=== PATIENT | male | born 1940 | race Caucasian/White ===

== ENCOUNTER 2016-11-15 20:48 | Emergency (ER) | payer BC, MEDICARE ==
[2016-11-15 21:11] VITALS: BP 163/73
--- NOTE | 2016-11-15 22:10 | UC ---
Lower Extremity/Ankle HPI - HPI Summary HPI Summary: FOUR DAYS OF INTERMITTENT LEFT GREAT TOE REDNESS, TENDERNESS, SWELLING. NO TRAUMA. NO FEVER. NO INJURY. COMES AND GOES. NO HISTORY OF GOUT. - History of Current Complaint Chief Complaint: UCLowerExtremity Stated Complaint: SORE TOE LEFT FOOT Time Seen by Provider: 11/15/16 21:48 Hx Obtained From: Patient Onset/Duration: Gradual Onset, Lasting Days, Still Present Severity Initially: Mild Severity Currently: Mild Aggravating Factor(s): Standing, Ambulation, Other - TOUCH Alleviating Factor(s): Rest Able to Bear Weight: Yes - Risk Factors Gout Risk Factors: Age Over 40, Male, Renal Disease, Obesity DVT Risk Factors: Negative Septic Arthritis Risk Factor: Negative - Allergies/Home Medications Allergies/Adverse Reactions: Allergies Allergy/AdvReac Type Severity Reaction Status Date / Time No Known Allergies Allergy Verified 11/15/16 20:59 Home Medications: Home Medications Cetirizine* [ZyrTEC 10 MG TAB*] 10 mg PO DAILY 11/15/16 [History Confirmed 11/15] Esomeprazole(NF) [NexIUM(NF)] 40 mg PO DAILY 11/15/16 [History Confirmed ] Lisinopril [Lisinopril 40 MG-] 40 mg PO DAILY 11/15/16 [History Confirmed ] Minocycline HCl [Minocin] 100 mg PO DAILY 11/15/16 [History Confirmed 11/15/16] PARoxetine HCL TAB* [Paxil TAB*] 20 mg PO DAILY 11/15/16 [History Confirmed ] amLODIPine TAB* [Norvasc 5 mg TAB*] 2.5 mg PO DAILY 11/15/16 [History Confirmed 11/15/16] PMH/Surg Hx/FS Hx/Imm Hx Previously Healthy: Yes Cardiovascular History Of: Reports: Hypertension - Surgical History Surgery Procedure, Year, and Place: NEPHRECTOMY FOR A TUMOR. COLECTOMY FOR CA. PROSTATECTOMY - Family History Known Family History: Negative: Other - NO FAMILY HX OF GOUT - Social History Occupation: Retired Lives: With Family Alcohol Use: Weekly Substance Use Type: None Smoking Status (MU): Former Smoker When Did the Patient Quit Smoking/Using Tobacco: 30 YEARS AGO Review of Systems Constitutional: Negative Skin: Other - REDNESS TENDERNESS Eyes: Negative ENT: Negative Respiratory: Negative Cardiovascular: Negative Gastrointestinal: Negative Genitourinary: Negative Motor: Negative Neurovascular: Negative Musculoskeletal: Edema - LEFT GREAT TOE Neurological: Negative Psychological: Negative All Other Systems Reviewed And Are Negative: Yes Physical Exam Triage Information Reviewed: Yes Appearance: Well-Appearing, No Pain Distress, Well-Nourished Vital Signs: Initial Vital Signs Temp 98.9 F 11/15/16 21:02 Pulse 73 11/15/16 21:02 Resp 16 11/15/16 21:02 BP 163/73 11/15/16 21:02 Pulse Ox 100 11/15/16 21:02 Vital Signs Reviewed: Yes Eye Exam: Normal ENT Exam: Normal ENT: Positive: Normal ENT inspection, Hearing grossly normal, Pharynx normal, TMs normal Dental Exam: Normal Neck exam: Normal Neck: Positive: Supple, Nontender, No Lymphadenopathy Respiratory Exam: Normal Respiratory: Positive: Chest non-tender, Lungs clear, Normal breath sounds, No respiratory distress Cardiovascular Exam: Normal Cardiovascular: Positive: RRR, No Murmur, Pulses Normal Abdominal Exam: Normal Abdomen Description: Positive: Nontender, No Organomegaly Musculoskeletal: Positive: Strength Intact, ROM Intact, Edema @ - LEFT GREAT TOE , Other: - ERRETHEMA LEFT GREAT TOE Neurological Exam: Normal Psychological Exam: Normal Skin Exam: Normal Lower Extremity Course/Dx - Differential Dx/Diagnosis Differential Diagnosis/HQI/PQRI: Arthritis, Cellulitis, Fracture (Closed), Gout , Sprain, Strain Provider Diagnoses: POSSIBLE GOUT Discharge - Discharge Plan Condition: Stable Disposition: HOME Patient Education Materials: Low Purine Diet (ED), Gout (ED) Referrals: Rickey Redman DO [Primary Care Provider] -
[2016-11-16 11:35] LABS: Hematocrit 44 % (42-52); Hemoglobin 14.3 g/dl (14.0-18.0); Mean Corpuscular HGB Conc 33 g/dl (31-36); Mean Corpuscular Hemoglobin 29 pg (27-31); Mean Corpuscular Volume 88 fL (80-94); Mean Platelet Volume 9 um3 (7.4-10.4); Red Blood Count 4.98 10^6/ul (4.0-5.4); Red Cell Distribution Width 15 % (10.5-15); White Blood Count 6.9 10^3/ul (3.5-10.8)
[2016-11-16 11:39] LABS: Add Diff/Slide Review? Slide Review Added; Comments Flag Yes
== END 2016-11-15 22:25 | disposition home or self-care (01) ==
LOC: UCCORT 20:48
DX: M79.675 Pain in left toe(s) (principal); I10 Essential (primary) hypertension; Z87.891 Personal history of nicotine dependence
CPT/HCPCS: 36415; 84550; 85025; 99201; G0463

== ENCOUNTER 2021-02-04 16:47 | Inpatient (IN) ==
[2021-02-04 17:07] LABS: Hematocrit 31 % (42-52); Mean Corpuscular HGB Conc 32 g/dL (31-36); Mean Corpuscular Hemoglobin 29 pg (27-31); Mean Corpuscular Volume 90 fL (80-94); Red Blood Count 3.49 10^6 /uL (4.18-5.48); White Blood Count 7.9 10^3/uL (3.5-10.8)
[2021-02-04] MEDS ORDERED: Iodixanol (CONTRAST) 320 MG/ML 100 ML SDV IV ONE (17:09)
[2021-02-04 17:16] LABS: Activated Partial Thrombo Time 29.9 seconds (26.0-38.0); INR 1.21 (0.86-1.15)
[2021-02-04 17:22] LABS: Albumin 2.6 g/dL (3.2-5.2); Albumin/Globulin Ratio 0.9 (1-3); C Reactive Protein 96.66 mg/L (<8.01); Calcium 7.2 mg/dL (8.6-10.3); EGFR African American 44.8 (>60); EGFR Non-African American 37.1 (>60); Globulin 2.9 g/dL (2-4); Potassium 5.5 mmol/L (3.5-5.0); Total Bilirubin 0.7 mg/dL (0.2-1.0); Total Protein 5.5 g/dL (6.4-8.9)
[2021-02-04 17:23] LABS: Troponin I 0.02 ng/mL (<0.03)
[2021-02-04] MEDS ORDERED: Lactated Ringers 500 ml BAG 500 ML IV ONE (17:39)
[2021-02-04 18:04] LABS: ABS Basophils 0.1 10^3/ul (0-0.2); ABS Eosinophils 0.1 10^3/ul (0-0.6); ABS Lymphocytes 2.1 10^3/ul (1.0-4.8); ABS Monocytes 0.2 10^3/ul (0-0.8); ABS Neutrophils 5.4 10^3/ul (1.5-7.7); ABS Nucleated RBC 0.2 10^3/ul; Eosinophil % 1.3 %; Lymphocyte % 26.8 %; Mean Platelet Volume 9.8 fL (7.4-10.4); Platelet Count 28 10^3/uL (150-450); Red Cell Distribution Width 21 % (10-15)
[2021-02-04 19:10] LABS: Phosphorus 4.7 mg/dL (2.5-5.0)
[2021-02-04 20:49] LABS: Uric Acid 4.6 mg/dL (4.4-7.6)
[2021-02-04] MEDS ORDERED: NS 0.9% 1000 ml BAG 1,000 ML IV SCH ×2 (21:00→22:15)
[2021-02-04] MEDS ORDERED: Dextrose 50% Syringe 50 ml 25 GM/50 ML SYRINGE IV PUSH PRN (21:01)
[2021-02-04] MEDS ORDERED: Sodium Polystyrene ORAL.SUSP 15 GM/60 ML BTL PO ONE (21:01)
[2021-02-04] MEDS ORDERED: Calcium Gluconate 2 GM in NS 0.9% 100 ml BAG 100 ML IV ONE (21:01)
[2021-02-04] MEDS ORDERED: Ondansetron ODT 4 mg TAB 4 MG TAB SL PRN (22:29)
[2021-02-04] MEDS: CALCIUM GLUCONATE 1GM/50ML NS BAG IV SCH (22:37)
[2021-02-05] MEDS: CALCIUM GLUCONATE 1GM/50ML NS BAG IV SCH (00:46)
[2021-02-05 01:29] LABS: Calcium 6.8 mg/dL (8.6-10.3); EGFR African American 47.9 (>60); EGFR Non-African American 39.6 (>60); Magnesium 1.8 mg/dL (1.9-2.7); Phosphorus 4.4 mg/dL (2.5-5.0); Potassium 4.7 mmol/L (3.5-5.0); Uric Acid 4.7 mg/dL (4.4-7.6)
[2021-02-05] MEDS ORDERED: Magnesium Sulfate IV 1GM/100ML 1 GM/100 ML BAG IV ONE (01:38)
[2021-02-05] MEDS ORDERED: Calcium Gluconate 2 GM in NS 0.9% 100 ml BAG 100 ML IV ONE (02:00)
[2021-02-05 06:04] LABS: Albumin 2.2 g/dL (3.2-5.2); Calcium 7.2 mg/dL (8.6-10.3); Direct Bilirubin 0.2 mg/dL (0.03-0.18); Indirect Bilirubin 0.4 mg/dL (0.3-1.0); Potassium 4.7 mmol/L (3.5-5.0); Total Bilirubin 0.6 mg/dL (0.2-1.0)
[2021-02-05 06:09] LABS: INR 1.43 (0.86-1.15)
[2021-02-05 06:10] LABS: Albumin/Globulin Ratio 0.8 (1-3); EGFR Non-African American 38.8 (>60); Globulin 2.8 g/dL (2-4)
[2021-02-05] MEDS: NS 0.9% 1000 ml BAG 1,000 ML IV SCH ×2 (06:12→17:02)
[2021-02-05 06:27] LABS: Hematocrit 26 % (42-52); Hemoglobin 8.4 g/dL (14.0-18.0); Mean Corpuscular HGB Conc 33 g/dL (31-36); Mean Corpuscular Hemoglobin 29 pg (27-31); Mean Corpuscular Volume 88 fL (80-94); Mean Platelet Volume 9.1 fL (7.4-10.4); Platelet Count 26 10^3/uL (150-450); Red Blood Count 2.93 10^6 /uL (4.18-5.48); Red Cell Distribution Width 20 % (10-15); White Blood Count 14.5 10^3/uL (3.5-10.8)
[2021-02-05 08:22] LABS: ABS Basophils 0.1 10^3/ul (0-0.2); ABS Lymphocytes 6.7 10^3/ul (1.0-4.8); ABS Monocytes 1.6 10^3/ul (0-0.8); ABS Neutrophils 6.1 10^3/ul (1.5-7.7); Lymphocyte % 46.1 %
[2021-02-05 08:42] LABS: Magnesium 2.1 mg/dL (1.9-2.7)
[2021-02-05 08:48] LABS: Phosphorus 4.5 mg/dL (2.5-5.0); Uric Acid 4.6 mg/dL (4.4-7.6)
[2021-02-05] MEDS ORDERED: Enoxaparin 40 MG/0.4 ML SYR SUBCUT SCH (09:00)
[2021-02-05 09:23] LABS: Urine Appearance Cloudy; Urine Bilirubin Negative (Negative); Urine Blood 1+ (Negative); Urine Color Yellow; Urine Glucose Negative (Negative); Urine Ketones Negative (Negative); Urine Nitrite Negative (Negative); Urine Protein 1+(30 mg/dL) (Negative); Urine Specific Gravity 1.051 (1.002-1.030); Urine Urobilinogen Negative (Negative)
[2021-02-05 09:27] LABS: Urine Bacteria Absent (Absent); Urine Red Blood Cell 2+(6-10/hpf) (Absent); Urine Squamous Epithelial Cell Present (Absent); Urine White Blood Cell Trace(0-5/hpf) (Absent)
[2021-02-05] MEDS: NS 0.9% IVPB SCH (11:51)
[2021-02-05] MEDS: BENDAMUSTINE HCL IVPB SCH (11:51)
[2021-02-05] MEDS ORDERED: Ondansetron 4 mg VIAL 2 MG/ML 2 ml VIAL IV ONE (12:00)
[2021-02-05] MEDS ORDERED: riTUXimab-ABBS 500 MG, riTUXimab-ABBS 200 MG in NS 0.9% 500 ml BAG 280 ML IVPB ONE (12:00)
[2021-02-05] MEDS ORDERED: Famotidine IV 10 MG/ML 2 ml VIAL (20 mg) IV ONE (12:00)
[2021-02-05] MEDS ORDERED: methylPREDNISolone 125 mg 2 ML VIAL IV ONE (12:00)
[2021-02-05] MEDS ORDERED: diPHENhydraMINE IV 50 MG/ML 1 ml VIAL (BENADRYL) IV ONE (12:00)
[2021-02-05 12:22] LABS: EGFR Non-African American 38.8 (>60); Phosphorus 4.6 mg/dL (2.5-5.0); Potassium 4.7 mmol/L (3.5-5.0); Uric Acid 4.7 mg/dL (4.4-7.6)
[2021-02-05 12:47] LABS: RBC Morphology Normal (Normal)
[2021-02-05 12:49] LABS: ABS Basophils 0.1 10^3/ul (0-0.2); ABS Lymphocytes 8.7 10^3/ul (1.0-4.8); ABS Monocytes 2.1 10^3/ul (0-0.8); ABS Neutrophils 7.2 10^3/ul (1.5-7.7); Hematocrit 29 % (42-52); Hemoglobin 8.8 g/dL (14.0-18.0); Mean Corpuscular HGB Conc 31 g/dL (31-36); Mean Corpuscular Hemoglobin 28 pg (27-31); Mean Corpuscular Volume 89 fL (80-94); Mean Platelet Volume 9.2 fL (7.4-10.4); Platelet Count 30 10^3/uL (150-450); Red Blood Count 3.21 10^6 /uL (4.18-5.48); Red Cell Distribution Width 22 % (10-15); White Blood Count 18.1 10^3/uL (3.5-10.8)
[2021-02-06] MEDS: NS 0.9% 1000 ml BAG 1,000 ML IV SCH ×2 (04:00→14:35)
[2021-02-06 06:01] LABS: Hematocrit 25 % (42-52); Hemoglobin 7.7 g/dL (14.0-18.0); Mean Corpuscular HGB Conc 31 g/dL (31-36); Mean Corpuscular Hemoglobin 28 pg (27-31); Mean Corpuscular Volume 89 fL (80-94); Mean Platelet Volume 8.8 fL (7.4-10.4); Platelet Count 19 10^3/uL (150-450); Red Blood Count 2.76 10^6 /uL (4.18-5.48); Red Cell Distribution Width 22 % (10-15); White Blood Count 17.2 10^3/uL (3.5-10.8)
[2021-02-06 06:13] LABS: Phosphorus 5.9 mg/dL (2.5-5.0); Uric Acid 4.9 mg/dL (4.4-7.6)
[2021-02-06 06:22] LABS: Anisocytosis 1+
[2021-02-06 06:23] LABS: Polychromasia 1+; RBC Morphology Normal (Normal); Smudge Cells Present
[2021-02-06 06:24] LABS: ABS Basophils 0.2 10^3/ul (0-0.2); ABS Lymphocytes 6.9 10^3/ul (1.0-4.8); ABS Monocytes 1.4 10^3/ul (0-0.8); ABS Neutrophils 8.7 10^3/ul (1.5-7.7); Eosinophil % 0.1 %; Lymphocyte % 39.9 %; Nucleated Red Blood Cells % 0.1
[2021-02-06] MEDS ORDERED: Ondansetron 4 mg VIAL 2 MG/ML 2 ml VIAL IV ONE (09:00)
[2021-02-06 11:12] LABS: EGFR African American 37.9 (>60); EGFR Non-African American 31.3 (>60); Potassium 4.8 mmol/L (3.5-5.0)
[2021-02-06 11:33] LABS: Calcium 6.4 mg/dL (8.6-10.3)
[2021-02-06] MEDS: BENDAMUSTINE HCL IVPB SCH (11:42)
[2021-02-06] MEDS: NS 0.9% IVPB SCH (11:42)
[2021-02-06] MEDS: Calcium Carb (TUMS) 500 mg CHEW TAB PO SCH ×2 (13:39→21:28)
[2021-02-06 19:27] LABS: EGFR African American 37.5 (>60); Phosphorus 5.2 mg/dL (2.5-5.0); Potassium 4.9 mmol/L (3.5-5.0)
[2021-02-06 19:45] LABS: Calcium 6.2 mg/dL (8.6-10.3)
[2021-02-06] MEDS ORDERED: Calcium Gluconate 2 GM in NS 0.9% 100 ml BAG 100 ML IV ONE (19:56)
[2021-02-07] MEDS: NS 0.9% 1000 ml BAG 1,000 ML IV SCH ×3 (00:58→17:05)
[2021-02-07] MEDS: Calcium Carb (TUMS) 500 mg CHEW TAB PO SCH ×3 (09:54→22:11)
[2021-02-07 12:00] LABS: Hematocrit 25 % (42-52); Hemoglobin 7.9 g/dL (14.0-18.0); Mean Corpuscular HGB Conc 32 g/dL (31-36); Mean Corpuscular Hemoglobin 28 pg (27-31); Mean Corpuscular Volume 88 fL (80-94); Mean Platelet Volume 9.2 fL (7.4-10.4); Platelet Count 20 10^3/uL (150-450); Red Cell Distribution Width 21 % (10-15); White Blood Count 20.8 10^3/uL (3.5-10.8)
[2021-02-07 12:11] LABS: Calcium 6.5 mg/dL (8.6-10.3); EGFR African American 43.7 (>60); EGFR Non-African American 36.1 (>60); Phosphorus 5.1 mg/dL (2.5-5.0); Potassium 4.9 mmol/L (3.5-5.0); Uric Acid 4.9 mg/dL (4.4-7.6)
[2021-02-07 12:51] LABS: Anisocytosis 2+; Hypochromasia 2+
[2021-02-07 12:59] LABS: Acanthocytes 3+
[2021-02-07 13:00] LABS: Smudge Cells Present
[2021-02-07 13:01] LABS: ABS Basophils 0.4 10^3/ul (0-0.2); ABS Lymphocytes 12.9 10^3/ul (1.0-4.8); ABS Monocytes 2.1 10^3/ul (0-0.8); ABS Neutrophils 5.3 10^3/ul (1.5-7.7); Lymphocyte % 62.1 %
[2021-02-08] MEDS: NS 0.9% 1000 ml BAG 1,000 ML IV SCH ×3 (03:48→21:01)
[2021-02-08 06:32] LABS: Hematocrit 25 % (42-52); Mean Corpuscular HGB Conc 32 g/dL (31-36); Mean Corpuscular Hemoglobin 28 pg (27-31); Mean Corpuscular Volume 88 fL (80-94); Mean Platelet Volume 9.4 fL (7.4-10.4); Platelet Count 25 10^3/uL (150-450); Red Blood Count 2.87 10^6 /uL (4.18-5.48); Red Cell Distribution Width 22 % (10-15); White Blood Count 31.7 10^3/uL (3.5-10.8)
[2021-02-08 06:33] LABS: Calcium 6.7 mg/dL (8.6-10.3); EGFR African American 52.6 (>60); EGFR Non-African American 43.5 (>60); Phosphorus 3.7 mg/dL (2.5-5.0)
[2021-02-08 06:38] LABS: Potassium 5.1 mmol/L (3.5-5.0)
[2021-02-08 06:59] LABS: Anisocytosis 2+
[2021-02-08 07:00] LABS: Burr Cells 1+; Polychromasia 1+
[2021-02-08 07:02] LABS: ABS Basophils 0.2 10^3/ul (0-0.2); ABS Lymphocytes 14.6 10^3/ul (1.0-4.8); ABS Monocytes 1.6 10^3/ul (0-0.8); ABS Neutrophils 15.2 10^3/ul (1.5-7.7); Lymphocyte % 46.2 %
[2021-02-08] MEDS: Calcium Carb (TUMS) 500 mg CHEW TAB PO SCH ×3 (10:35→21:01)
[2021-02-09] MEDS: NS 0.9% 1000 ml BAG 1,000 ML IV SCH (04:25)
[2021-02-09] MEDS: Calcium Carb (TUMS) 500 mg CHEW TAB PO SCH ×2 (09:00→13:51)
[2021-02-09 09:29] LABS: Hematocrit 31 % (42-52); Hemoglobin 8.7 g/dL (14.0-18.0); Mean Corpuscular HGB Conc 28 g/dL (31-36); Mean Corpuscular Hemoglobin 28 pg (27-31); Mean Corpuscular Volume 98 fL (80-94); Mean Platelet Volume 9.2 fL (7.4-10.4); Platelet Count 29 10^3/uL (150-450); Red Blood Count 3.15 10^6 /uL (4.18-5.48); Red Cell Distribution Width 22 % (10-15); White Blood Count 26.9 10^3/uL (3.5-10.8)
[2021-02-09 09:43] LABS: Calcium 6.7 mg/dL (8.6-10.3); EGFR African American 65.6 (>60); EGFR Non-African American 54.2 (>60); Phosphorus 3.2 mg/dL (2.5-5.0); Uric Acid 4.5 mg/dL (4.4-7.6)
[2021-02-09 10:32] LABS: Anisocytosis 1+
[2021-02-09 10:33] LABS: ABS Basophils 0.1 10^3/ul (0-0.2); ABS Eosinophils 0.1 10^3/ul (0-0.6); ABS Lymphocytes 12.5 10^3/ul (1.0-4.8); ABS Monocytes 0.6 10^3/ul (0-0.8); ABS Neutrophils 13.6 10^3/ul (1.5-7.7); Eosinophil % 0.4 %; Hypochromasia 3+; Lymphocyte % 46.6 %; Polychromasia 1+
[2021-02-09 15:41] VITALS: BP 99/54
[2021-02-10] MEDS ORDERED: ENTECAVIR 0.5 MG PO SCH (09:00)
== END 2021-02-09 16:45 | disposition home health service (06) | DRG 840 ==
LOC: ED 16:47 → MEDTELE 16:47
PROVIDERS: ADMIT Internal Medicine; ATTEND Internal Medicine Medical Oncology

== ENCOUNTER 2021-02-18 12:11 | Inpatient (IN) ==
[2021-02-18] MEDS ORDERED: NS 0.9% 1000 ml BAG 1,000 ML IV ONE (13:03)
[2021-02-18] MEDS ORDERED: Vancomycin 1,500 MG in NS 0.9% 250 ml 250 ML IVPB ONE (13:03)
[2021-02-18 14:30] LABS: Eosinophil % 0.2 %; Hematocrit 27 % (42-52); Hemoglobin 8.8 g/dL (14.0-18.0); Lymphocyte % 97.1 %; Mean Corpuscular HGB Conc 33 g/dL (31-36); Mean Corpuscular Hemoglobin 30 pg (27-31); Mean Corpuscular Volume 93 fL (80-94); Nucleated Red Blood Cells % 0.1; Platelet Count 64 10^3/uL (150-450); Red Blood Count 2.92 10^6 /uL (4.18-5.48); Red Cell Distribution Width 25 % (10-15); White Blood Count 3.1 10^3/uL (3.5-10.8)
[2021-02-18 14:39] LABS: INR 1.29 (0.86-1.15)
[2021-02-18 14:44] LABS: ALT 11 U/L (7-52); Albumin 2.2 g/dL (3.2-5.2); Albumin/Globulin Ratio 0.9 (1-3); Alkaline Phosphatase 92 U/L (35-149); Blood Urea Nitrogen 21 mg/dL (6-24); C Reactive Protein 92.07 mg/L (<8.01); CO2 Carbon Dioxide 21 mmol/L (22-32); Calcium 6.8 mg/dL (8.6-10.3); Chloride 106 mmol/L (101-111); EGFR African American 51.8 (>60); EGFR Non-African American 42.8 (>60); Globulin 2.4 g/dL (2-4); Glucose 86 mg/dL (70-100); Sodium 133 mmol/L (135-145); Total Protein 4.6 g/dL (6.4-8.9)
[2021-02-18 14:45] LABS: Troponin I 0.01 ng/mL (<0.03)
[2021-02-18 14:55] LABS: Anion Gap 6 mmol/L (2-11)
[2021-02-18] MEDS ORDERED: Piperacillin/Tazobac ADVAN 3.375 GM in NS 0.9% 100 ml BAG 100 ML IV ONE ×2 (15:35→17:53)
[2021-02-18 15:43] LABS: ABS Neutrophils 0.1 10^3/ul (1.5-7.7)
[2021-02-18 16:40] LABS: Potassium Redraw 3.5 mmol/L (3.5-5.0)
[2021-02-18] MEDS ORDERED: Zosyn per Pharmacy NOTE FOLLOW UP SCH (18:00)
[2021-02-18] MEDS: ZOSYN 3.375 GM Q8H per EXTENDED INFUSION IV SCH (22:28)
[2021-02-19] MEDS: ZOSYN 3.375 GM Q8H per EXTENDED INFUSION IV SCH ×2 (04:51→13:06)
[2021-02-19 05:14] LABS: Hematocrit 25 % (42-52); Hemoglobin 8.2 g/dL (14.0-18.0); Mean Corpuscular HGB Conc 33 g/dL (31-36); Mean Corpuscular Hemoglobin 30 pg (27-31); Mean Corpuscular Volume 92 fL (80-94); Mean Platelet Volume 8.3 fL (7.4-10.4); Platelet Count 36 10^3/uL (150-450); Red Blood Count 2.72 10^6 /uL (4.18-5.48); Red Cell Distribution Width 26 % (10-15); White Blood Count 3.3 10^3/uL (3.5-10.8)
[2021-02-19 05:27] LABS: Albumin/Globulin Ratio 0.9 (1-3); EGFR African American 55.5 (>60); EGFR Non-African American 45.8 (>60); Globulin 2.2 g/dL (2-4); Potassium 3.5 mmol/L (3.5-5.0); Total Bilirubin 1.1 mg/dL (0.2-1.0); Total Protein 4.2 g/dL (6.4-8.9)
[2021-02-19 05:31] LABS: Calcium 6.4 mg/dL (8.6-10.3)
[2021-02-19 05:44] LABS: ABS Lymphocytes 3.2 10^3/ul (1.0-4.8); Eosinophil % 0.5 %; Lymphocyte % 98.4 %; Nucleated Red Blood Cells % 0.2
[2021-02-19] MEDS: ENTECAVIR 0.5 MG PO SCH (09:26)
[2021-02-19 09:35] LABS: Calcium 6.5 mg/dL (8.6-10.3); EGFR African American 52.6 (>60); EGFR Non-African American 43.5 (>60); Potassium 3.5 mmol/L (3.5-5.0)
[2021-02-19] MEDS: Nystatin TOP POWDER 15 GM BTL TOPICAL SCH (21:59)
[2021-02-19] MEDS: Meropenem 1 GM PREMIX 1 GM/50 ML BAG IV SCH (22:00)
[2021-02-20 05:41] LABS: Hematocrit 25 % (42-52); Hemoglobin 8.1 g/dL (14.0-18.0); Mean Corpuscular HGB Conc 33 g/dL (31-36); Mean Corpuscular Hemoglobin 31 pg (27-31); Mean Corpuscular Volume 93 fL (80-94); Mean Platelet Volume 8.6 fL (7.4-10.4); Platelet Count 29 10^3/uL (150-450); Red Blood Count 2.65 10^6 /uL (4.18-5.48); Red Cell Distribution Width 27 % (10-15); White Blood Count 2.8 10^3/uL (3.5-10.8)
[2021-02-20 05:45] LABS: ABS Neutrophils 0.3 10^3/ul (1.5-7.7)
[2021-02-20 05:59] LABS: Calcium 6.6 mg/dL (8.6-10.3); EGFR African American 56.8 (>60); EGFR Non-African American 46.9 (>60); Potassium 3.4 mmol/L (3.5-5.0)
[2021-02-20 06:32] LABS: ABS Lymphocytes 2.5 10^3/ul (1.0-4.8); Eosinophil % 0.9 %; Nucleated Red Blood Cells % 0.1
[2021-02-20] MEDS: Meropenem 1 GM PREMIX 1 GM/50 ML BAG IV SCH ×2 (09:04→21:44)
[2021-02-20] MEDS: ENTECAVIR 0.5 MG PO SCH (09:05)
[2021-02-20] MEDS: Nystatin TOP POWDER 15 GM BTL TOPICAL SCH ×2 (09:06→21:46)
[2021-02-20 09:24] LABS: Hematocrit 26 % (42-52); Hemoglobin 8.4 g/dL (14.0-18.0); Mean Corpuscular HGB Conc 32 g/dL (31-36); Mean Corpuscular Hemoglobin 30 pg (27-31); Mean Corpuscular Volume 94 fL (80-94); Mean Platelet Volume 8.9 fL (7.4-10.4); Platelet Count 30 10^3/uL (150-450); Red Cell Distribution Width 26 % (10-15); White Blood Count 2.9 10^3/uL (3.5-10.8)
[2021-02-20 09:33] LABS: Potassium Redraw 3.5 mmol/L (3.5-5.0)
[2021-02-20 09:48] LABS: Total Iron Binding Capacity 179 mcg/dL (250-450); Transferrin 128 mg/dL (203-362)
[2021-02-20 09:50] LABS: % Iron Saturation 11 % (15-55); Iron < 20 ug/dL (50-212); Unsaturated Iron Binding < 164 ug/dL
[2021-02-20 09:55] LABS: Potassium 3.5 mmol/L (3.5-5.0)
[2021-02-20 10:08] LABS: Calcium 6.6 mg/dL (8.6-10.3); EGFR African American 55.9 (>60); EGFR Non-African American 46.2 (>60); Ferritin 261.3 ng/mL (24-336)
[2021-02-20 10:15] LABS: Anisocytosis 1+
[2021-02-21 05:48] LABS: Hematocrit 25 % (42-52); Hemoglobin 7.9 g/dL (14.0-18.0); Mean Corpuscular HGB Conc 32 g/dL (31-36); Mean Corpuscular Hemoglobin 30 pg (27-31); Mean Corpuscular Volume 94 fL (80-94); Mean Platelet Volume 8.4 fL (7.4-10.4); Platelet Count 29 10^3/uL (150-450); Red Blood Count 2.61 10^6 /uL (4.18-5.48); Red Cell Distribution Width 27 % (10-15); White Blood Count 4.7 10^3/uL (3.5-10.8)
[2021-02-21 06:06] LABS: Albumin/Globulin Ratio 0.9 (1-3); EGFR African American 58.2 (>60); EGFR Non-African American 48.1 (>60); Globulin 2.2 g/dL (2-4); Magnesium 1.4 mg/dL (1.9-2.7); Potassium 3.5 mmol/L (3.5-5.0); Total Bilirubin 0.8 mg/dL (0.2-1.0); Total Protein 4.2 g/dL (6.4-8.9)
[2021-02-21 06:27] LABS: ABS Lymphocytes 4.5 10^3/ul (1.0-4.8); ABS Monocytes 0.1 10^3/ul (0-0.8); ABS Neutrophils 0.1 10^3/ul (1.5-7.7); Calcium 6.4 mg/dL (8.6-10.3); Eosinophil % 0.6 %; Lymphocyte % 96.1 %; Nucleated Red Blood Cells % 0.1
[2021-02-21] MEDS ORDERED: Magnesium Sulf 4 GM/100 ML IV 4,000 MG/100 ML BAG IVPB ONE (08:30)
[2021-02-21] MEDS: Meropenem 1 GM PREMIX 1 GM/50 ML BAG IV SCH ×2 (09:15→20:47)
[2021-02-21] MEDS: Nystatin TOP POWDER 15 GM BTL TOPICAL SCH ×2 (09:16→20:47)
[2021-02-21] MEDS: Calcium Carb (TUMS) 500 mg CHEW TAB PO SCH ×2 (09:16→20:47)
[2021-02-21] MEDS: ENTECAVIR 0.5 MG PO SCH (09:18)
[2021-02-21 09:42] LABS: ABS Lymphocytes 4.7 10^3/ul (1.0-4.8); ABS Neutrophils 0.1 10^3/ul (1.5-7.7); Eosinophil % 0.4 %; Hematocrit 25 % (42-52); Hemoglobin 8.1 g/dL (14.0-18.0); Lymphocyte % 96.2 %; Mean Corpuscular HGB Conc 32 g/dL (31-36); Mean Corpuscular Hemoglobin 30 pg (27-31); Mean Corpuscular Volume 94 fL (80-94); Mean Platelet Volume 8.3 fL (7.4-10.4); Nucleated Red Blood Cells % 0.2; Platelet Count 27 10^3/uL (150-450); Red Cell Distribution Width 26 % (10-15); White Blood Count 4.8 10^3/uL (3.5-10.8)
[2021-02-21 09:53] LABS: Albumin/Globulin Ratio 0.9 (1-3); Calcium 6.6 mg/dL (8.6-10.3); EGFR African American 63.9 (>60); EGFR Non-African American 52.8 (>60); Globulin 2.3 g/dL (2-4); Potassium 3.5 mmol/L (3.5-5.0); Total Bilirubin 0.8 mg/dL (0.2-1.0); Total Protein 4.3 g/dL (6.4-8.9)
[2021-02-22 05:47] LABS: Magnesium 2.1 mg/dL (1.9-2.7)
[2021-02-22] MEDS: Meropenem 1 GM PREMIX 1 GM/50 ML BAG IV SCH ×2 (07:55→22:09)
[2021-02-22] MEDS: Calcium Carb (TUMS) 500 mg CHEW TAB PO SCH ×2 (07:56→22:07)
[2021-02-22 08:13] LABS: ABS Lymphocytes 4.3 10^3/ul (1.0-4.8); ABS Neutrophils 0.5 10^3/ul (1.5-7.7); Hematocrit 25 % (42-52); Lymphocyte % 88.5 %; Mean Corpuscular HGB Conc 32 g/dL (31-36); Mean Corpuscular Hemoglobin 31 pg (27-31); Mean Corpuscular Volume 95 fL (80-94); Mean Platelet Volume 8.6 fL (7.4-10.4); Platelet Count 22 10^3/uL (150-450); Red Blood Count 2.61 10^6 /uL (4.18-5.48); Red Cell Distribution Width 26 % (10-15); White Blood Count 4.9 10^3/uL (3.5-10.8)
[2021-02-22 08:19] LABS: Potassium 3.5 mmol/L (3.5-5.0)
[2021-02-22 08:20] LABS: Albumin 1.9 g/dL (3.2-5.2); Albumin/Globulin Ratio 0.8 (1-3); Calcium 6.7 mg/dL (8.6-10.3); EGFR African American 67.4 (>60); EGFR Non-African American 55.7 (>60); Globulin 2.3 g/dL (2-4); Total Bilirubin 0.7 mg/dL (0.2-1.0); Total Protein 4.2 g/dL (6.4-8.9)
[2021-02-22 08:45] LABS: Acanthocytes 1+; Anisocytosis 2+
[2021-02-22 08:46] LABS: Hypochromasia 1+
[2021-02-22] MEDS: Nystatin TOP POWDER 15 GM BTL TOPICAL SCH ×2 (10:15→22:42)
[2021-02-22] MEDS: ENTECAVIR 0.5 MG PO SCH (10:15)
[2021-02-23 05:45] LABS: Hematocrit 25 % (42-52); Hemoglobin 8.3 g/dL (14.0-18.0); Mean Corpuscular HGB Conc 33 g/dL (31-36); Mean Corpuscular Hemoglobin 31 pg (27-31); Mean Corpuscular Volume 94 fL (80-94); Mean Platelet Volume 8.5 fL (7.4-10.4); Platelet Count 22 10^3/uL (150-450); Red Cell Distribution Width 26 % (10-15); White Blood Count 5.9 10^3/uL (3.5-10.8)
[2021-02-23 05:56] LABS: Albumin 1.9 g/dL (3.2-5.2); Albumin/Globulin Ratio 0.9 (1-3); Calcium 6.8 mg/dL (8.6-10.3); EGFR African American 73.5 (>60); EGFR Non-African American 60.7 (>60); Globulin 2.2 g/dL (2-4); Potassium 3.5 mmol/L (3.5-5.0); Total Bilirubin 0.7 mg/dL (0.2-1.0); Total Protein 4.1 g/dL (6.4-8.9)
[2021-02-23 07:14] LABS: ABS Eosinophils 0.1 10^3/ul (0-0.6); ABS Lymphocytes 3.8 10^3/ul (1.0-4.8); ABS Monocytes 0.7 10^3/ul (0-0.8); ABS Neutrophils 1.4 10^3/ul (1.5-7.7); Eosinophil % 0.9 %; Lymphocyte % 64.2 %
[2021-02-23] MEDS: Meropenem 1 GM PREMIX 1 GM/50 ML BAG IV SCH ×2 (10:12→20:11)
[2021-02-23] MEDS: ENTECAVIR 0.5 MG PO SCH (10:15)
[2021-02-23] MEDS: Calcium Carb (TUMS) 500 mg CHEW TAB PO SCH ×2 (10:15→20:11)
[2021-02-23] MEDS: Nystatin TOP POWDER 15 GM BTL TOPICAL SCH ×2 (10:15→20:12)
[2021-02-24 07:30] LABS: Hematocrit 27 % (42-52); Hemoglobin 8.8 g/dL (14.0-18.0); Mean Corpuscular HGB Conc 33 g/dL (31-36); Mean Corpuscular Hemoglobin 31 pg (27-31); Mean Corpuscular Volume 95 fL (80-94); Mean Platelet Volume 8.1 fL (7.4-10.4); Platelet Count 23 10^3/uL (150-450); Red Blood Count 2.85 10^6 /uL (4.18-5.48); Red Cell Distribution Width 26 % (10-15); White Blood Count 7.5 10^3/uL (3.5-10.8)
[2021-02-24 07:44] LABS: Calcium 6.9 mg/dL (8.6-10.3); EGFR African American 66.2 (>60); EGFR Non-African American 54.7 (>60); Potassium 3.8 mmol/L (3.5-5.0)
[2021-02-24 08:09] LABS: ABS Basophils 0.1 10^3/ul (0-0.2); ABS Eosinophils 0.1 10^3/ul (0-0.6); ABS Lymphocytes 4.1 10^3/ul (1.0-4.8); ABS Neutrophils 2.3 10^3/ul (1.5-7.7); Lymphocyte % 54.9 %; Nucleated Red Blood Cells % 0.1
[2021-02-24] MEDS: Meropenem 1 GM PREMIX 1 GM/50 ML BAG IV SCH ×2 (09:42→20:40)
[2021-02-24] MEDS: Calcium Carb (TUMS) 500 mg CHEW TAB PO SCH ×2 (09:43→20:42)
[2021-02-24] MEDS: ENTECAVIR 0.5 MG PO SCH (09:44)
[2021-02-24] MEDS: Nystatin TOP POWDER 15 GM BTL TOPICAL SCH ×2 (09:47→20:41)
[2021-02-25 06:21] LABS: Hematocrit 29 % (42-52); Hemoglobin 9.3 g/dL (14.0-18.0); Mean Corpuscular HGB Conc 32 g/dL (31-36); Mean Corpuscular Hemoglobin 31 pg (27-31); Mean Corpuscular Volume 94 fL (80-94); Mean Platelet Volume 8.2 fL (7.4-10.4); Platelet Count 20 10^3/uL (150-450); Red Blood Count 3.03 10^6 /uL (4.18-5.48); Red Cell Distribution Width 27 % (10-15); White Blood Count 12.5 10^3/uL (3.5-10.8)
[2021-02-25 06:39] LABS: EGFR African American 63.9 (>60); EGFR Non-African American 52.8 (>60)
[2021-02-25 07:00] LABS: ABS Eosinophils 0.1 10^3/ul (0-0.6); ABS Lymphocytes 6.8 10^3/ul (1.0-4.8); ABS Monocytes 1.3 10^3/ul (0-0.8); ABS Neutrophils 4.2 10^3/ul (1.5-7.7); Lymphocyte % 54.4 %; Nucleated Red Blood Cells % 0.1
[2021-02-25] MEDS: Calcium Carb (TUMS) 500 mg CHEW TAB PO SCH ×2 (08:53→20:43)
[2021-02-25] MEDS: ENTECAVIR 0.5 MG PO SCH (08:53)
[2021-02-25] MEDS: Meropenem 1 GM PREMIX 1 GM/50 ML BAG IV SCH ×2 (08:53→20:43)
[2021-02-25] MEDS: Nystatin TOP POWDER 15 GM BTL TOPICAL SCH ×2 (08:53→20:45)
[2021-02-25 16:02] LABS: ABS Eosinophils 0.1 10^3/ul (0-0.6); ABS Lymphocytes 5.2 10^3/ul (1.0-4.8); ABS Monocytes 0.1 10^3/ul (0-0.8); ABS Neutrophils 4.2 10^3/ul (1.5-7.7); Eosinophil % 0.7 %; Hematocrit 28 % (42-52); Hemoglobin 9.2 g/dL (14.0-18.0); Lymphocyte % 53.9 %; Mean Corpuscular HGB Conc 33 g/dL (31-36); Mean Corpuscular Hemoglobin 31 pg (27-31); Mean Corpuscular Volume 94 fL (80-94); Mean Platelet Volume 9.1 fL (7.4-10.4); Nucleated Red Blood Cells % 0.1; Platelet Count 28 10^3/uL (150-450); Red Blood Count 2.99 10^6 /uL (4.18-5.48); Red Cell Distribution Width 26 % (10-15); White Blood Count 9.7 10^3/uL (3.5-10.8)
[2021-02-25 16:45] LABS: Anisocytosis 1+; Hypochromasia 2+; Toxic Granulation 1+
[2021-02-26] MEDS: Calcium Carb (TUMS) 500 mg CHEW TAB PO SCH ×2 (08:06→20:03)
[2021-02-26] MEDS: ENTECAVIR 0.5 MG PO SCH (08:06)
[2021-02-26] MEDS: Nystatin TOP POWDER 15 GM BTL TOPICAL SCH ×2 (08:07→20:04)
[2021-02-26] MEDS: Meropenem 1 GM PREMIX 1 GM/50 ML BAG IV SCH ×2 (08:56→20:04)
[2021-02-26 16:50] LABS: Calcium 7.4 mg/dL (8.6-10.3); EGFR African American 61.2 (>60); EGFR Non-African American 50.5 (>60); Potassium 3.8 mmol/L (3.5-5.0)
[2021-02-27] MEDS: Calcium Carb (TUMS) 500 mg CHEW TAB PO SCH ×2 (08:10→21:44)
[2021-02-27] MEDS: ENTECAVIR 0.5 MG PO SCH (08:10)
[2021-02-27] MEDS: Nystatin TOP POWDER 15 GM BTL TOPICAL SCH ×2 (08:11→21:45)
[2021-02-27] MEDS: Meropenem 1 GM PREMIX 1 GM/50 ML BAG IV SCH ×2 (08:11→21:45)
[2021-02-27 09:00] LABS: EGFR African American 58.7 (>60); EGFR Non-African American 48.5 (>60); Potassium 3.8 mmol/L (3.5-5.0)
[2021-02-28 05:46] LABS: Hematocrit 26 % (42-52); Hemoglobin 8.5 g/dL (14.0-18.0); Mean Corpuscular HGB Conc 33 g/dL (31-36); Mean Corpuscular Hemoglobin 31 pg (27-31); Mean Corpuscular Volume 94 fL (80-94); Mean Platelet Volume 8.3 fL (7.4-10.4); Platelet Count 36 10^3/uL (150-450); Red Blood Count 2.74 10^6 /uL (4.18-5.48); Red Cell Distribution Width 26 % (10-15); White Blood Count 12.8 10^3/uL (3.5-10.8)
[2021-02-28 06:00] LABS: Calcium 6.9 mg/dL (8.6-10.3); EGFR Non-African American 45.5 (>60); Potassium 3.5 mmol/L (3.5-5.0)
[2021-02-28 06:07] LABS: ABS Eosinophils 0.1 10^3/ul (0-0.6); ABS Lymphocytes 7.6 10^3/ul (1.0-4.8); ABS Monocytes 0.4 10^3/ul (0-0.8); ABS Neutrophils 4.8 10^3/ul (1.5-7.7); Eosinophil % 0.4 %; Lymphocyte % 59.3 %
[2021-02-28] MEDS: ENTECAVIR 0.5 MG PO SCH (08:28)
[2021-02-28] MEDS: Nystatin TOP POWDER 15 GM BTL TOPICAL SCH ×2 (08:28→20:37)
[2021-02-28] MEDS: Meropenem 1 GM PREMIX 1 GM/50 ML BAG IV SCH ×2 (08:28→20:38)
[2021-02-28] MEDS: Calcium Carb (TUMS) 500 mg CHEW TAB PO SCH ×2 (08:28→20:36)
[2021-03-01 06:21] LABS: Hematocrit 27 % (42-52); Hemoglobin 8.7 g/dL (14.0-18.0); Mean Corpuscular HGB Conc 32 g/dL (31-36); Mean Corpuscular Hemoglobin 31 pg (27-31); Mean Corpuscular Volume 95 fL (80-94); Mean Platelet Volume 8.3 fL (7.4-10.4); Platelet Count 46 10^3/uL (150-450); Red Blood Count 2.85 10^6 /uL (4.18-5.48); Red Cell Distribution Width 26 % (10-15); White Blood Count 14.4 10^3/uL (3.5-10.8)
[2021-03-01 06:41] LABS: Calcium 6.9 mg/dL (8.6-10.3); EGFR African American 54.6 (>60); EGFR Non-African American 45.1 (>60); Potassium 3.5 mmol/L (3.5-5.0)
[2021-03-01 09:15] LABS: Anisocytosis 2+
[2021-03-01 09:16] LABS: Polychromasia 1+
[2021-03-01 09:20] LABS: ABS Lymphocytes 4.5 10^3/ul (1.0-4.8); ABS Neutrophils 8.9 10^3/ul (1.5-7.7)
[2021-03-01] MEDS: Calcium Carb (TUMS) 500 mg CHEW TAB PO SCH ×2 (10:49→20:15)
[2021-03-01] MEDS: Nystatin TOP POWDER 15 GM BTL TOPICAL SCH ×2 (10:50→20:17)
[2021-03-01] MEDS: Meropenem 1 GM PREMIX 1 GM/50 ML BAG IV SCH ×2 (10:51→20:15)
[2021-03-01] MEDS: ENTECAVIR 0.5 MG PO SCH (10:52)
[2021-03-01] MEDS ORDERED: NS 0.9% 250 ml 250 ML IV SCH (13:00)
[2021-03-02] MEDS: Calcium Carb (TUMS) 500 mg CHEW TAB PO SCH ×2 (08:10→20:27)
[2021-03-02] MEDS: Meropenem 1 GM PREMIX 1 GM/50 ML BAG IV SCH (08:12)
[2021-03-02] MEDS: ENTECAVIR 0.5 MG PO SCH (08:12)
[2021-03-02] MEDS: Nystatin TOP POWDER 15 GM BTL TOPICAL SCH ×2 (08:30→20:29)
[2021-03-03] MEDS: Calcium Carb (TUMS) 500 mg CHEW TAB PO SCH (08:11)
[2021-03-03] MEDS: Nystatin TOP POWDER 15 GM BTL TOPICAL SCH (08:12)
[2021-03-03] MEDS: ENTECAVIR 0.5 MG PO SCH (08:12)
[2021-03-03 08:48] VITALS: BP 91/54
== END 2021-03-03 10:03 | DRG 809 ==
LOC: ED 12:11 → MED 17:53 → MEDTELE 02-19 21:51
PROVIDERS: ADMIT Internal Medicine Hematology & Oncology; ATTEND Internal Medicine Medical Oncology

== ENCOUNTER 2021-03-31 06:12 | Inpatient (IN) ==
[2021-03-31] MEDS ORDERED: Meropenem 1 GM PREMIX(*) 1 GM/50 ML BAG IV ONE (06:41)
[2021-03-31 08:58] LABS: Hematocrit 32 % (42-52); Hemoglobin 10.4 g/dL (14.0-18.0); Mean Corpuscular HGB Conc 33 g/dL (31-36); Mean Corpuscular Hemoglobin 34 pg (27-31); Mean Corpuscular Volume 103 fL (80-94); Mean Platelet Volume 7.8 fL (7.4-10.4); Platelet Count 23 10^3/uL (150-450); Red Blood Count 3.07 10^6 /uL (4.18-5.48); Red Cell Distribution Width 29 % (10-15); White Blood Count 20.9 10^3/uL (3.5-10.8)
[2021-03-31] MEDS ORDERED: NS 0.9% 1000 ml BAG 1,000 ML IV ONE (09:03)
[2021-03-31 09:05] LABS: Activated Partial Thrombo Time 27.1 seconds (26.0-38.0); INR 1.19 (0.86-1.15)
[2021-03-31 09:06] LABS: ALT 13 U/L (7-52); AST 21 U/L (13-39); Albumin 1.8 g/dL (3.2-5.2); Albumin/Globulin Ratio 0.9 (1-3); Alkaline Phosphatase 85 U/L (35-149); Anion Gap 8 mmol/L (2-11); Blood Urea Nitrogen 56 mg/dL (6-24); CO2 Carbon Dioxide 21 mmol/L (22-32); Chloride 104 mmol/L (101-111); EGFR African American 22.1 (>60); EGFR Non-African American 18.2 (>60); Glucose 80 mg/dL (70-100); Potassium 3.9 mmol/L (3.5-5.0); Sodium 133 mmol/L (135-145); Total Protein 3.8 g/dL (6.4-8.9)
[2021-03-31 09:14] LABS: Troponin I 0.03 ng/mL (<0.03)
[2021-03-31 09:15] LABS: Calcium 6.4 mg/dL (8.6-10.3)
[2021-03-31 09:35] LABS: ABS Eosinophils 0.4 10^3/ul (0-0.6); ABS Lymphocytes 15.8 10^3/ul (1.0-4.8); ABS Monocytes 0.3 10^3/ul (0-0.8); ABS Neutrophils 4.5 10^3/ul (1.5-7.7); Eosinophil % 1.7 %; Lymphocyte % 75.5 %
[2021-03-31 09:37] LABS: Hypochromasia 1+
[2021-03-31 09:38] LABS: Acanthocytes 1+; Anisocytosis 2+
[2021-03-31 09:39] LABS: Polychromasia 2+; Target Cells 1+
[2021-03-31] MEDS ORDERED: Lactated Ringers 1000 ml BAG 1,000 ML IV ONE (12:23)
[2021-03-31 12:51] LABS: Urine Appearance Cloudy; Urine Bilirubin Negative (Negative); Urine Blood Negative (Negative); Urine Color Yellow; Urine Glucose Negative (Negative); Urine Ketones Negative (Negative); Urine Nitrite Negative (Negative); Urine Protein 1+(30 mg/dL) (Negative); Urine Specific Gravity 1.018 (1.002-1.030); Urine Urobilinogen Negative (Negative)
[2021-03-31 12:57] LABS: Urine Bacteria Absent (Absent); Urine Red Blood Cell Trace(0-2/hpf) (Absent); Urine White Blood Cell Trace(0-5/hpf) (Absent)
[2021-03-31] MEDS ORDERED: ESOMEPRAZOLE 40 MG PO PRN (13:18)
[2021-03-31] MEDS ORDERED: Cyanocobalamin INJ 1,000 MCG/ML VIAL 1 ML VIAL IM SCH (14:00)
[2021-03-31] MEDS ORDERED: NORMOSOL-R pH 7.4 1000 mL BAG 1,000 ML IV SCH ×3 (14:00→14:45)
[2021-03-31] MEDS ORDERED: Hydrocortisone INJ 250 MG VIAL IV ONE (16:12)
[2021-03-31 16:46] LABS: LDH 218 U/L (140-271); Prealbumin 5 mg/dL (18-38)
[2021-03-31] MEDS ORDERED: Hydrocortisone INJ 100 MG/2ML 2 ML VIAL IV ONE (17:00)
[2021-03-31] MEDS: Norepinephrine 16MCG/ML IVPRE 4,000 MCG/250 ML BAG IV SCH (18:46)
[2021-03-31] MEDS: Meropenem 1 GM PREMIX(*) 1 GM/50 ML BAG IV SCH (19:41)
[2021-03-31 20:18] LABS: Troponin I 0.05 ng/mL (<0.03)
[2021-03-31] MEDS: Pantoprazole VIAL 40 MG VIAL IV SCH (23:30)
[2021-04-01] MEDS: Hydrocortisone INJ 100 MG/2ML 2 ML VIAL IV SCH ×3 (02:00→15:18)
[2021-04-01 05:39] LABS: Troponin I 0.03 ng/mL (<0.03)
[2021-04-01 07:03] LABS: Hematocrit 36 % (42-52); Hemoglobin 11.9 g/dL (14.0-18.0); Mean Corpuscular HGB Conc 33 g/dL (31-36); Mean Corpuscular Hemoglobin 34 pg (27-31); Mean Corpuscular Volume 104 fL (80-94); Mean Platelet Volume 8.9 fL (7.4-10.4); Platelet Count 33 10^3/uL (150-450); Red Blood Count 3.51 10^6 /uL (4.18-5.48); Red Cell Distribution Width 30 % (10-15); White Blood Count 41.4 10^3/uL (3.5-10.8)
[2021-04-01 07:15] LABS: Calcium 6.5 mg/dL (8.6-10.3); EGFR African American 23.7 (>60); EGFR Non-African American 19.6 (>60); Magnesium 1.6 mg/dL (1.9-2.7); Phosphorus 5.8 mg/dL (2.5-5.0)
[2021-04-01 07:25] LABS: Potassium 5.5 mmol/L (3.5-5.0)
[2021-04-01] MEDS ORDERED: Magnesium Sulfate IV 3 GM in NS 0.9% 100 ml BAG 100 ML IVPB ONE (07:50)
[2021-04-01] MEDS: Meropenem 1 GM PREMIX(*) 1 GM/50 ML BAG IV SCH ×2 (08:18→20:03)
[2021-04-01] MEDS: Norepinephrine 16MCG/ML IVPRE 4,000 MCG/250 ML BAG IV SCH (08:22)
[2021-04-01] MEDS ORDERED: ENTECAVIR 0.5 MG PO SCH (09:00)
[2021-04-01] MEDS: Pantoprazole VIAL 40 MG VIAL IV SCH (21:15)
[2021-04-02] MEDS: Hydrocortisone INJ 100 MG/2ML 2 ML VIAL IV SCH ×3 (00:13→17:45)
[2021-04-02 06:10] LABS: Calcium 6.6 mg/dL (8.6-10.3); EGFR Non-African American 16.5 (>60); Magnesium 2.1 mg/dL (1.9-2.7)
[2021-04-02 06:11] LABS: Potassium 5.5 mmol/L (3.5-5.0)
[2021-04-02 06:35] LABS: Hematocrit 33 % (42-52); Hemoglobin 10.5 g/dL (14.0-18.0); Mean Corpuscular HGB Conc 32 g/dL (31-36); Mean Corpuscular Hemoglobin 33 pg (27-31); Mean Corpuscular Volume 105 fL (80-94); Mean Platelet Volume 8.9 fL (7.4-10.4); Platelet Count 36 10^3/uL (150-450); Red Blood Count 3.18 10^6 /uL (4.18-5.48); Red Cell Distribution Width 29 % (10-15); White Blood Count 42.7 10^3/uL (3.5-10.8)
[2021-04-02] MEDS: Meropenem 1 GM PREMIX(*) 1 GM/50 ML BAG IV SCH ×2 (08:16→22:41)
[2021-04-02 10:52] LABS: ABS Basophils 0.1 10^3/ul (0-0.2); ABS Lymphocytes 27.7 10^3/ul (1.0-4.8); ABS Monocytes 5.1 10^3/ul (0-0.8); ABS Neutrophils 9.7 10^3/ul (1.5-7.7); ABS Nucleated RBC 0.1 10^3/ul; Nucleated Red Blood Cells % 0.1
[2021-04-02 10:58] LABS: Urine Appearance Cloudy; Urine Bilirubin Negative (Negative); Urine Blood 2+ (Negative); Urine Color Yellow; Urine Glucose 1+(50 mg/dL) (Negative); Urine Ketones Negative (Negative); Urine Nitrite Negative (Negative); Urine Protein 1+(30 mg/dL) (Negative); Urine Specific Gravity 1.018 (1.002-1.030); Urine Urobilinogen Negative (Negative)
[2021-04-02 11:26] LABS: Urine Bacteria Absent (Absent); Urine Red Blood Cell 1+(3-5/hpf) (Absent); Urine White Blood Cell 1+(6-10/hpf) (Absent)
[2021-04-02] MEDS ORDERED: SODIUM ZIRCONIUM CYCLOSILICATE 5 GM PACKET PO SCH (15:00)
[2021-04-02] MEDS: Patiromer POWDER 8.4 GM PAK PO SCH ×3 (15:07→22:41)
[2021-04-02] MEDS: Pantoprazole VIAL 40 MG VIAL IV SCH (22:42)
[2021-04-03] MEDS: Hydrocortisone INJ 100 MG/2ML 2 ML VIAL IV SCH ×3 (02:33→16:19)
[2021-04-03 06:46] LABS: Hematocrit 33 % (42-52); Hemoglobin 10.6 g/dL (14.0-18.0); Mean Corpuscular HGB Conc 32 g/dL (31-36); Mean Corpuscular Hemoglobin 34 pg (27-31); Mean Corpuscular Volume 104 fL (80-94); Mean Platelet Volume 8.4 fL (7.4-10.4); Platelet Count 33 10^3/uL (150-450); Red Blood Count 3.16 10^6 /uL (4.18-5.48); Red Cell Distribution Width 30 % (10-15)
[2021-04-03 07:00] LABS: Calcium 6.5 mg/dL (8.6-10.3); EGFR African American 19.2 (>60); EGFR Non-African American 15.9 (>60); Magnesium 2.1 mg/dL (1.9-2.7); Phosphorus 7.2 mg/dL (2.5-5.0)
[2021-04-03 07:01] LABS: Potassium 5.6 mmol/L (3.5-5.0)
[2021-04-03 08:22] LABS: ABS Basophils 0.1 10^3/ul (0-0.2); ABS Lymphocytes 33.6 10^3/ul (1.0-4.8); ABS Monocytes 6.4 10^3/ul (0-0.8); ABS Neutrophils 7.9 10^3/ul (1.5-7.7); ABS Nucleated RBC 0.1 10^3/ul; Lymphocyte % 69.9 %; Nucleated Red Blood Cells % 0.2
[2021-04-03] MEDS: Meropenem 1 GM PREMIX(*) 1 GM/50 ML BAG IV SCH ×2 (11:00→21:14)
[2021-04-03] MEDS: Patiromer POWDER 8.4 GM PAK PO SCH ×2 (11:01→22:35)
[2021-04-03 13:05] LABS: Lactate Dehydrogenase, BF 87 U/L
[2021-04-03] MEDS: Pantoprazole VIAL 40 MG VIAL IV SCH (21:13)
[2021-04-04] MEDS: Hydrocortisone INJ 100 MG/2ML 2 ML VIAL IV SCH ×3 (01:37→16:50)
[2021-04-04 06:30] LABS: Calcium 6.5 mg/dL (8.6-10.3); EGFR African American 18.6 (>60); EGFR Non-African American 15.4 (>60); Magnesium 2.2 mg/dL (1.9-2.7); Phosphorus 7.8 mg/dL (2.5-5.0)
[2021-04-04 06:31] LABS: Potassium 5.7 mmol/L (3.5-5.0)
[2021-04-04] MEDS: Meropenem 1 GM PREMIX(*) 1 GM/50 ML BAG IV SCH ×2 (10:01→22:57)
[2021-04-04 10:05] LABS: Fluid Type, Amylase PERITONEAL
[2021-04-04 10:12] LABS: Fluid Type, Protein, Total PERITONEAL; Total Protein, BF 1.1 g/dL
[2021-04-04] MEDS: Patiromer POWDER 8.4 GM PAK PO SCH (10:13)
[2021-04-04 10:14] LABS: Albumin, BF 0.7 g/dL; Fluid Type, Albumin PERITONEAL; Glucose, BF 123 mg/dL
[2021-04-04 10:21] LABS: ABS Monocytes 0.7 10^3/ul (0-0.8); ABS Neutrophils 8.8 10^3/ul (1.5-7.7); ABS Nucleated RBC 0.1 10^3/ul; Hematocrit 34 % (42-52); Hemoglobin 10.5 g/dL (14.0-18.0); Lymphocyte % 87.7 %; Mean Corpuscular HGB Conc 31 g/dL (31-36); Mean Corpuscular Hemoglobin 33 pg (27-31); Mean Corpuscular Volume 105 fL (80-94); Mean Platelet Volume 8.9 fL (7.4-10.4); Nucleated Red Blood Cells % 0.1; Platelet Count 45 10^3/uL (150-450); Red Blood Count 3.21 10^6 /uL (4.18-5.48); Red Cell Distribution Width 30 % (10-15); White Blood Count 77.5 10^3/uL (3.5-10.8)
[2021-04-04 10:44] LABS: Macrocytosis 2+
[2021-04-04] MEDS ORDERED: Sodium Polystyrene ORAL.SUSP 15 GM/60 ML BTL PO SCH (14:00)
[2021-04-04] MEDS: SODIUM ZIRCONIUM CYCLOSILICATE 10 GM PACKET PO SCH (19:53)
[2021-04-04] MEDS: Pantoprazole VIAL 40 MG VIAL IV SCH (22:57)
[2021-04-05] MEDS: Hydrocortisone INJ 100 MG/2ML 2 ML VIAL IV SCH ×3 (01:43→16:20)
[2021-04-05 06:19] LABS: INR 1.42 (0.86-1.15)
[2021-04-05 07:15] LABS: ABS Lymphocytes 55.4 10^3/ul (1.0-4.8); ABS Monocytes 0.3 10^3/ul (0-0.8); ABS Neutrophils 6.2 10^3/ul (1.5-7.7); ABS Nucleated RBC 0.2 10^3/ul; Hematocrit 30 % (42-52); Hemoglobin 9.5 g/dL (14.0-18.0); Lymphocyte % 89.5 %; Mean Corpuscular HGB Conc 32 g/dL (31-36); Mean Corpuscular Hemoglobin 34 pg (27-31); Mean Corpuscular Volume 106 fL (80-94); Mean Platelet Volume 8.8 fL (7.4-10.4); Nucleated Red Blood Cells % 0.2; Platelet Count 36 10^3/uL (150-450); Red Blood Count 2.81 10^6 /uL (4.18-5.48); Red Cell Distribution Width 30 % (10-15); White Blood Count 61.9 10^3/uL (3.5-10.8)
[2021-04-05 07:17] LABS: Macrocytosis 2+
[2021-04-05] MEDS: SODIUM ZIRCONIUM CYCLOSILICATE 10 GM PACKET PO SCH ×2 (08:30→12:52)
[2021-04-05] MEDS: Meropenem 1 GM PREMIX(*) 1 GM/50 ML BAG IV SCH ×2 (08:33→21:42)
[2021-04-05 15:13] LABS: Calcium 6.5 mg/dL (8.6-10.3)
[2021-04-05 15:18] LABS: Potassium 5.2 mmol/L (3.5-5.0)
[2021-04-05] MEDS: Pantoprazole VIAL 40 MG VIAL IV SCH (21:42)
[2021-04-06] MEDS: Hydrocortisone INJ 100 MG/2ML 2 ML VIAL IV SCH ×2 (00:25→07:23)
[2021-04-06] MEDS: Meropenem 1 GM PREMIX(*) 1 GM/50 ML BAG IV SCH ×2 (07:21→20:54)
[2021-04-06 07:29] LABS: Hematocrit 35 % (42-52); Hemoglobin 10.9 g/dL (14.0-18.0); Mean Corpuscular HGB Conc 32 g/dL (31-36); Mean Corpuscular Hemoglobin 34 pg (27-31); Mean Corpuscular Volume 107 fL (80-94); Mean Platelet Volume 9.1 fL (7.4-10.4); Platelet Count 50 10^3/uL (150-450); Red Blood Count 3.24 10^6 /uL (4.18-5.48); Red Cell Distribution Width 30 % (10-15); White Blood Count 94.8 10^3/uL (3.5-10.8)
[2021-04-06 07:44] LABS: Calcium 6.9 mg/dL (8.6-10.3)
[2021-04-06] MEDS ORDERED: Hydrocortisone INJ 100 MG/2ML 2 ML VIAL IV SCH (09:00)
[2021-04-06 11:09] LABS: ABS Lymphocytes 81.6 10^3/ul (1.0-4.8); ABS Monocytes 0.4 10^3/ul (0-0.8); ABS Neutrophils 12.7 10^3/ul (1.5-7.7); Lymphocyte % 86.1 %
[2021-04-06 11:11] LABS: Anisocytosis 2+; Macrocytosis 1+; Polychromasia 1+
[2021-04-06 11:12] LABS: Smudge Cells Present
[2021-04-06] MEDS: Pantoprazole VIAL 40 MG VIAL IV SCH (20:40)
[2021-04-06] MEDS ORDERED: Morphine ORAL CONCENTRATE 5 MG/0.25 ML ORAL.SYRIN SL PRN (21:02)
[2021-04-08 08:56] VITALS: BP 95/59
== END 2021-04-08 11:10 | disposition home or self-care (01) | DRG 871 ==
LOC: ED 06:12 → SUATTDRO 12:50 → ICU 12:50 → SSU 04-02 23:59
PROVIDERS: ADMIT Internal Medicine; ATTEND Internal Medicine